=== PATIENT | male | born 1950 | race Caucasian/White ===

== ENCOUNTER → 2016-09-05 | Day surgery (SDC) | payer BC ==
[2016-08-31 15:00] VITALS: BMI 36.0
--- NOTE | 2016-08-31 15:29 | PAT Medication Instructions ---
Service Date Aug 31, 2016. Current Home Medication List Hydrocodone/Acetaminophen 5MG/325MG ([place] 5MG/325MG), 1 TABLET PO Q6 PRN for Pain Medication Instructions For Your Scheduled Surgery - Take the following medications the morning of surgery with a sip of water: Hydrocodone/Acetaminophen 5MG/325MG ([place] 5MG/325MG), 1 TABLET PO Q6 PRN for Pain (okay to take up to 4 hours prior to surgery if needed) - Take the following medications as scheduled the night before surgery: Hydrocodone/Acetaminophen 5MG/325MG ([place] 5MG/325MG), 1 TABLET PO Q6 PRN for Pain (if needed) If you have any questions please call us at [phone] (Julienne Mckeon PA-C) or [phone] or [phone]
[~2016-09-05] VITALS: Ht 172.7 cm; Wt 108.3 kg
[~2016-09-05] MED LIST: ATROPINE SULFATE 0.1 MG/ML 5ML SYR IV PRN; BUPIVACAINE/EPINEPHRINE 0.5% MPF 1:200,000 30 ML VIAL INJ ONE; CEFAZOLIN 2000 MG/60 ML D5W IV SCH; DEXAMETHASONE SOD INJ 4 MG/ML VIAL ONE; EpHEDrine SULFATE INJ 50 MG/ML AMP IV PRN; FENTANYL CITRATE INJ 50 MCG/1 ML 2 ML VIAL ONE; FLUMAZENIL 0.1 MG/1 ML 10 ML VIAL IV PRN; GLYCOPYRROLATE INJ 0.2 MG/ML VIAL ONE; HEPARIN SOD 5000 UNIT/0.5 ML CARP SQ SCH; HYDR-5688 PO; HYDROCODONE/ACETAMOPHEN 5/325MG TAB PO PRN; HYDROmorphone INJ 1 MG/ML SYR IV PRN; LABETALOL HCL IV 5 MG/ML 20ML IV PRN; LACTATED RINGER'S 1000ML 1,000 ML IV SCH; LIDOCAINE HCL 2% 2 ML VIAL (20MG/ML) ONE; MIDAZOLAM HCL 1 MG/ML 2ML VIAL ONE; MoRPHine SULFATE 4 MG/ML 1 ML CARP\\VIAL IV PRN; NALOXONE HCL 0.4 MG/1 ML VIAL/CARP IV PRN; NEOSTIGMINE METHYLSULFATE 5 MG/5 ML SYR ONE; ONDANSETRON INJ 2 MG/ML 2 ML VIAL IV PRN; ONDANSETRON INJ 2 MG/ML 2 ML VIAL ONE; PHENYLEPHRINE 100MCG/ML 5ML SYR ONE; PROMETHAZINE HCL INJ 12.5 MG in SODIUM CHLORIDE 0.9% 50ML 50 ML IV PRN; PROPOFOL IV EMULSION 10 MG/ML 20 ML VIAL IV ONE; ROCURONIUM BROMIDE 10 MG/ML 5 ML VIAL ONE
[2016-09-05 08:45] VITALS: BP 164/97; PULSE 81; TEMP 36.7; O2SAT 95; Ht 172.7 cm; Wt 108.3 kg
--- NOTE | 2016-09-05 08:50 | History & Physical Bridge Note ---
H&P Re-Evaluation Bridge Note: I have examined the patient, reviewed the History & Physical and in the interval since the performance of the History & Physical I have noted the following changes of clinical significance: No changes noted
--- NOTE | 2016-09-05 08:53 | Discharge Instructions ---
Discharge Instructions Admission Reason for Admission: Left Inguinal Hernia Discharge Discharge Diagnosis / Problem: left inguinal hernia Discharge Goals Goal(s): Decrease discomfort, Improve function Activity Recommendations Activity Limitations: as noted below Lifting Limitations: no more than 10 pounds Exercise/Sports Limitations: until after follow-up appointment May Resume Sexual Activity: after follow-up appointment Shower/Bathe: tomorrow . Instructions / Follow-Up Instructions / Follow-Up f/u with Dr. Lynch in 1-2 weeks Current Hospital Diet Patient's current hospital diet: Discharge Diet Recommended Diet: Regular Diet Pending Studies Studies pending at discharge: no Medical Emergencies . Who to Call and When: Medical Emergencies: If at any time you feel your situation is an emergency, please call 911 immediately. . Non-Emergent Contact Non-Emergency issues call your: Primary Care Provider, Surgeon Call Non-Emergent contact if: temperature is above 101, your pain is not controlled, wound has increased drainage, wound has increased redness . "Provider Documentation" section prepared by Darrin Lynch. VTE Core Measure Inpt VTE Proph given/why not?: Unfractionated heparin SQ, SCD's
--- NOTE | 2016-09-05 10:39 | [facility] Operative Report ---
Operative Report Operative Date Sep 05, 2016. Pre-Operative Diagnosis Left inguinal hernia Post-Operative Diagnosis large direct inguinal hernia Procedure(s) Performed open inguinal hernia repair with mesh Surgeon Dr. Lynch Tunnel Miner Surgeon(s) Ryan Starkey PA-C Findings large direct inguinal hernia Specimens none Anesthesia get Complication(s) None Disposition Recovery Room / PACU I attest to the content of the Intraoperative Record and any orders documented therein. Any exceptions are noted below.
--- NOTE | 2016-09-05 11:13 | OPERATIVE REPORT ---
DATE OF OPERATION: 09/05/2016 PREOPERATIVE DIAGNOSIS: Left inguinal hernia. POSTOPERATIVE DIAGNOSIS: Large direct inguinal hernia. PROCEDURE: Open left inguinal hernia repair with mesh. SURGEON: Dr. Lynch. WEB DESIGNER DEVELOPER: Ryan Starkey PA-C. ESTIMATED BLOOD LOSS: 10 mL COMPLICATION: No immediate. ANESTHESIA: General endotracheal. OPERATIVE NOTE: After informed consent was obtained, the patient was taken to the operating suite and placed in supine position. After successful intubation, a Soliman catheter was placed, and the lower abdomen was shaved, sterilely prepped and draped. A left inguinal incision was made with a 15 blade scalpel. It was carried down through the soft tissue using electrocautery. The external oblique aponeurosis was skeletonized and a small incision made with a new blade. Metzenbaum scissors were then used to extend this down through the external ring as well as for several centimeters proximally. Once in the inguinal canal, we grasped the cord and cord structures with a Brainard and elevated. Blunt finger dissection was used to separate it from surrounding structures. We found a very large direct inguinal hernia with basically the whole floor of the inguinal canal ruptured. We did inspect the cord, there was no evidence of an indirect hernia sac. Because of the large nature of the hernia, we did imbricate it prior to placing mesh. We used 0 Nurolon sutures to pull the midline muscles over and attach them to the shelving portion of the inguinal ligament. We did this with multiple simple interrupted sutures. Once this was performed, we then used a barnes-holed mesh as an onlay. We secured it distally to the Jose Antonio's ligament, medially along the rectus musculature and laterally along the inguinal ligament. We wrapped the "arms" of the mesh around behind the cord and cord structures and secured them together as well as the underlying muscle. At the end of the procedure, we had a nice mesh repair incorporating the entire canal. We did thoroughly irrigate the wound. There was adequate hemostasis at the end of the procedure. We injected the edges of the mesh with Marcaine. We then closed the external oblique aponeurosis with 2-0 Vicryl in a running fashion. We irrigated soft tissue and closed it using 3-0 Vicryl and 4-0 Monocryl. Some additional Marcaine was injected around the skin and Dermabond glue was placed. The patient was awakened, extubated and transferred to recovery in stable condition. I attest to the content of the Intraoperative Record and any orders documented therein. Any exceptio ns are noted below.
--- NOTE | 2016-09-05 11:15 | Anesthesiology Progress Note ---
Anesthesia Post Op Note Date & Time Sep 05, 2016 at 11:14 Vital Signs Pain Intensity: 1 Vital Signs Past 12 Hours Date Time Temp Pulse Resp B/P Pulse Ox O2 Delivery O2 Flow Rate FiO2 09/05/16 11:10 61 22 100 09/05/16 11:10 36.5 61 22 09/05/16 11:09 147/87 09/05/16 11:05 64 18 09/05/16 11:05 64 18 100 09/05/16 11:04 142/83 09/05/16 11:00 61 16 09/05/16 11:00 61 16 100 09/05/16 10:58 140/81 09/05/16 10:55 61 18 100 09/05/16 10:55 61 18 09/05/16 10:53 130/81 09/05/16 10:50 62 19 09/05/16 10:50 63 19 100 09/05/16 10:49 140/81 09/05/16 10:45 59 16 100 09/05/16 10:45 59 16 09/05/16 10:43 156/94 09/05/16 10:41 132/80 09/05/16 10:40 36.4 64 16 132/80 95 Mask 10 09/05/16 08:45 36.7 81 18 164/97 95 Room Air Notes Mental Status: alert / awake / arousable, participated in evaluation Pt Amnestic to Procedure: Yes Nausea / Vomiting: adequately controlled Pain: adequately controlled Airway Patency, RR, SpO2: stable & adequate BP & HR: stable & adequate Hydration State: stable & adequate Anesthetic Complications: no major complications apparent
[2016-09-05 11:30] VITALS: BP 166/88; PULSE 65; TEMP 36.4; O2SAT 95
[2016-09-05 11:55] VITALS: BP 154/92; PULSE 65; TEMP 36.9; O2SAT 94
[2016-09-05 12:30] VITALS: BP 155/96; PULSE 76; TEMP 36.7; O2SAT 96
== END | disposition home or self-care (01) ==
LOC: C.ACU 08:12
PROVIDERS: ATTEND Surgery
DX: K40.90 Unilateral inguinal hernia, without obstruction or gangrene, not specified as recurrent (principal); I10 Essential (primary) hypertension; E66.9 Obesity, unspecified; E78.5 Hyperlipidemia, unspecified; Z98.41 Cataract extraction status, right eye; Z98.42 Cataract extraction status, left eye; Z87.891 Personal history of nicotine dependence; Z68.36 Body mass index [BMI] 36.0-36.9, adult; Z87.442 Personal history of urinary calculi

== ENCOUNTER → 2016-09-27 | Outpatient (CLI) | payer BC ==
[~2016-09-27] MED LIST changes: -ATROPINE SULFATE 0.1 MG/ML 5ML SYR IV PRN; -BUPIVACAINE/EPINEPHRINE 0.5% MPF 1:200,000 30 ML VIAL INJ ONE; -CEFAZOLIN 2000 MG/60 ML D5W IV SCH; -DEXAMETHASONE SOD INJ 4 MG/ML VIAL ONE; -EpHEDrine SULFATE INJ 50 MG/ML AMP IV PRN; -FENTANYL CITRATE INJ 50 MCG/1 ML 2 ML VIAL ONE; -FLUMAZENIL 0.1 MG/1 ML 10 ML VIAL IV PRN; -GLYCOPYRROLATE INJ 0.2 MG/ML VIAL ONE; -HEPARIN SOD 5000 UNIT/0.5 ML CARP SQ SCH; -HYDROCODONE/ACETAMOPHEN 5/325MG TAB PO PRN; -HYDROmorphone INJ 1 MG/ML SYR IV PRN; -LABETALOL HCL IV 5 MG/ML 20ML IV PRN; -LACTATED RINGER'S 1000ML 1,000 ML IV SCH; -LIDOCAINE HCL 2% 2 ML VIAL (20MG/ML) ONE; -MIDAZOLAM HCL 1 MG/ML 2ML VIAL ONE; -MoRPHine SULFATE 4 MG/ML 1 ML CARP\\VIAL IV PRN; -NALOXONE HCL 0.4 MG/1 ML VIAL/CARP IV PRN; -NEOSTIGMINE METHYLSULFATE 5 MG/5 ML SYR ONE; -ONDANSETRON INJ 2 MG/ML 2 ML VIAL IV PRN; -ONDANSETRON INJ 2 MG/ML 2 ML VIAL ONE; -PHENYLEPHRINE 100MCG/ML 5ML SYR ONE; -PROMETHAZINE HCL INJ 12.5 MG in SODIUM CHLORIDE 0.9% 50ML 50 ML IV PRN; -PROPOFOL IV EMULSION 10 MG/ML 20 ML VIAL IV ONE; -ROCURONIUM BROMIDE 10 MG/ML 5 ML VIAL ONE
== END | disposition home or self-care (01) ==
LOC: C.LABSPEC 17:24
PROVIDERS: ATTEND Surgery
DX: H60.91 Unspecified otitis externa, right ear (principal)

== ENCOUNTER 2017-12-21 19:56 | Emergency (ER) | payer BC ==
[~2017-12-21] VITALS: Ht 170.2 cm; Wt 108.0 kg
[2017-12-21 19:59] VITALS: TEMP 36.8; O2SAT 95; Ht 170.2 cm; Wt 108.0 kg
--- NOTE | 2017-12-21 20:09 | EMERGENCY ROOM VISIT NOTE ---
History Report prepared by Ananda: Robbie Brunner Under the Supervision of: Dr. Amos George M.D. First contact with patient: 20:02 Chief Complaint: FLANK PAIN Stated Complaint: PAIN IN L TESTICLE,SIDE AND BACK History of Present Illness The patient is a 67 year old male who presents to the Emergency Room with complaints of worsening left lower back pain beginning 6-7 months ago. The patient states his symptoms radiate from his left lower back through his left abdomen to his left testicle. He reports his symptoms have worsened over the past few days. The patient notes his symptoms intensify when he bends over. He states he took two Aleve this morning. The patient reports he had an MRI preformed in 2014 and was told it was normal. He notes he received the MRI for a possible disk complication. The patient denies being evaluated for his current symptoms and urinary symptoms. Review of the EMR showed the patient had a CT in 2015 that showed several, small kidney stones. Source of History: patient Onset: 6-7 months ago Position: back (left, lower) Timing: worsening Modifying Factors (Worsening): movement (bending over) Associated Symptoms: + abdominal pain (left), No urinary symptoms Note: Associated symptoms: left testicular pain Review of Systems See HPI for pertinent positives & negatives. A total of 10 systems reviewed and were otherwise negative. Past Medical & Surgical Medical Problems: (1) Kidney stone Family History Heart disease Hypertension Kidney disease Social History Smoking Status: Former Smoker Alcohol Use: occasionally Marital Status: Housing Status: lives with family Occupation Status: unemployed Current/Historical Medications Scheduled Lidocaine (Lidocaine), 5 % TD DAILY Scheduled PRN Naproxen (Aleve), 440 MG PO DAILY PRN for Pain or Fever Oxycodone Immediate Rel Tab (Roxicodone Ir), 1-2 TAB PO Q4H PRN for Severe Pain Allergies Coded Allergies: No Known Allergies (Unverified , 12/21/17) Physical Exam Vital Signs Date Time Temp Pulse Resp B/P (MAP) Pulse Ox O2 Delivery O2 Flow Rate FiO2 12/21/17 22:19 150/101 12/21/17 21:17 67 12/21/17 19:59 36.8 75 18 151/92 95 Room Air Physical Exam GENERAL: Awake, alert, well-appearing, in no acute distress HENT: Normocephalic, atraumatic. Oropharynx unremarkable. EYES: Normal conjunctiva. Sclera non-icteric. NECK: Supple. No nuchal rigidity. FROM. No JVD. RESPIRATORY: Clear to auscultation. CARDIAC: Regular rate, normal rhythm. Extremities warm and well perfused. Pulses equal. ABDOMEN: Soft, non-distended. No tenderness to palpation. No rebound or guarding. No masses. RECTAL: Deferred. : No evidence of testicular torsion on exam. Good cremasteric reflex. Testicles themselves are not swollen. MUSCULOSKELETAL: Chest examination reveals no tenderness. The back is symmetrical on inspection without obvious abnormality. There is no CVA tenderness to palpation. No joint edema. LOWER EXTREMITIES: Calves are equal size bilaterally and non-tender. No edema. No discoloration. NEURO: Normal sensorium. No sensory or motor deficits noted. Pt is able to walk on tiptoes and heels. SKIN: No rash or jaundice noted. Medical Decision & Procedures ER Provider Diagnostic Interpretation: Radiology results as stated below per my review and radiologist interpretation: LUMBAR SPINE WITHOUT CT DOSE: HISTORY: Pain Pt c/o pain radiating to testicle TECHNIQUE: Multiaxial CT images of the lumbar spine were performed and reformatted in the sagittal and coronal plane without the use of contrast. A dose lowering technique was utilized adhering to the principles of ALARA. COMPARISON: None. FINDINGS: Mild degenerative disc changes throughout. Considerable degenerative anterior osteophyte formation from L2 through L4. No evidence for compression deformity. Mild degenerative changes of the posterior elements. No evidence for significant bony spinal stenosis. IMPRESSION: Moderate degenerative disc change. No acute abnormality. The above report was generated using voice recognition software. It may contain grammatical, syntax or spelling errors. Electronically signed by: Yordan Jimenez M.D. 12/21/2017 9:16 PM Dictated Date/Time: 12/21/2017 9:15 PM ABD/PELVIS WITHOUT FOR STONE CT DOSE: 1943.55 mGy.cm HISTORY: Flank pain Pt c/o left sided flank pain TECHNIQUE: Multiaxial CT images of the abdomen and pelvis were performed without the use of intravenous and oral contrast according to the standard department stone protocol. A dose lowering technique was utilized adhering to the principles of ALARA. COMPARISON STUDY: 10/02/2014 FINDINGS: Minimal bibasilar atelectasis. Liver spleen and pancreas are uniform. The gallbladder shows the kidneys show mild cortical scarring. There are negative for hydronephrosis. Nonobstructive bowel pattern. Moderate fecal material throughout the colon. Normal appendix. Mild fecal impaction of the rectum. Mild prosthetic enlargement. Bladder is midline. Moderate degenerative changes lumbar spine. IMPRESSION: 1. Mild rectal fecal impaction. 2. Abdomen and pelvis is otherwise negative. 3. Minimal bibasilar platelike atelectasis. The above report was generated using voice recognition software. It may contain grammatical, syntax or spelling errors. Electronically signed by: Yordan Jimenez M.D. 12/21/2017 9:15 PM Dictated Date/Time: 12/21/2017 9:10 PM Laboratory Results 12/21/17 20:23 Red Blood Count 4.68, Mean Corpuscular Volume 90.8, Mean Corpuscular Hemoglobin 31.4, Mean Corpuscular Hemoglobin Concent 34.6, Mean Platelet Volume 9.0, Neutrophils (%) (Auto) 65.2, Lymphocytes (%) (Auto) 23.5, Monocytes (%) (Auto) 7.0, Eosinophils (%) (Auto) 3.8, Basophils (%) (Auto) 0.3, Neutrophils # (Auto) 4.30, Lymphocytes # (Auto) 1.55, Monocytes # (Auto) 0.46, Eosinophils # (Auto) 0.25, Basophils # (Auto) 0.02 12/21/17 20:23 Test 12/21/17 20:23 White Blood Count 6.59 K/uL (4.8-10.8) Red Blood Count 4.68 M/uL (4.7-6.1) Hemoglobin 14.7 g/dL (14.0-18.0) Hematocrit 42.5 % (42-52) Mean Corpuscular Volume 90.8 fL (80-100) Mean Corpuscular Hemoglobin 31.4 pg (25-34) Mean Corpuscular Hemoglobin Concent 34.6 g/dl (32-36) Platelet Count 185 K/uL (130-400) Mean Platelet Volume 9.0 fL (7.4-10.4) Neutrophils (%) (Auto) 65.2 % Lymphocytes (%) (Auto) 23.5 % Monocytes (%) (Auto) 7.0 % Eosinophils (%) (Auto) 3.8 % Basophils (%) (Auto) 0.3 % Neutrophils # (Auto) 4.30 K/uL (1.4-6.5) Lymphocytes # (Auto) 1.55 K/uL (1.2-3.4) Monocytes # (Auto) 0.46 K/uL (0.11-0.59) Eosinophils # (Auto) 0.25 K/uL (0-0.5) Basophils # (Auto) 0.02 K/uL (0-0.2) RDW Standard Deviation 43.5 fL (36.4-46.3) RDW Coefficient of Variation 13.3 % (11.5-14.5) Immature Granulocyte % (Auto) 0.2 % Immature Granulocyte # (Auto) 0.01 K/uL (0.00-0.02) Erythrocyte Sedimentation Rate 8 mm/hr (0-14) Anion Gap 6.0 mmol/L (3-11) Est Creatinine Clear Calc Drug Dose 65.4 ml/min Estimated GFR () 67.7 Estimated GFR (Non- 58.4 BUN/Creatinine Ratio 19.4 (10-20) Calcium Level 9.1 mg/dl (8.5-10.1) Total Bilirubin 0.8 mg/dl (0.2-1) Direct Bilirubin 0.3 mg/dl (0-0.2) Aspartate Amino Transf (AST/SGOT) 23 U/L (15-37) Alanine Aminotransferase (ALT/SGPT) 22 U/L (12-78) Alkaline Phosphatase 78 U/L (45-117) C-Reactive Protein 0.37 mg/dl (0-0.29) Total Protein 7.6 gm/dl (6.4-8.2) Albumin 4.3 gm/dl (3.4-5.0) Lipase 207 U/L (73-393) Labs reviewed by ED physician. Medications Administered Medications (Trade) Dose Ordered Sig/Kathy Route Start Time Stop Time Status Last Admin Dose Admin Ketorolac Tromethamine (Toradol Inj) 30 mg NOW STAT IV 12/21/17 20:10 12/21/17 20:14 DC 12/21/17 20:34 30 MG Hydromorphone HCl (Dilaudid Inj) 0.5 mg NOW STAT IV 12/21/17 20:10 4/26/18 20:14 DC 12/21/17 20:33 0.5 MG Sodium Chloride 1,000 ml @ 999 mls/hr Q1H1M STAT IV 12/21/17 20:10 12/21/17 21:10 DC 12/21/17 20:33 999 MLS/HR Ondansetron HCl (Zofran Inj) 4 mg NOW STAT IV 12/21/17 20:10 12/21/17 20:14 DC 12/21/17 20:34 4 MG Lidocaine (Lidoderm Patch 5%) 1 patch NOW STAT TD 12/21/17 21:36 12/21/17 21:38 DC 12/21/17 22:09 1 PATCH Oxycodone HCl (Roxicodone Immediate Rel 5MG Home Pack) 1 homepack UD ONCE PO 12/21/17 21:45 12/21/17 21:46 DC 12/21/17 22:09 1 HOMEPACK ED Course 2002: Past medical records reviewed. The patient was evaluated in room C02B. A complete history and physical examination was performed. 2009: Ordered Ondansetron 4mg IV, Sodium Chloride 1000 ml @ 999 mls/hr IV, Dilaudid 0.5mg IV, Ketorolac Tromethamine 30mg IV 2130: Upon reexamination the patient is still experiencing mild back pain. I performed a testicular examination. I discussed results and treatment plan with the patient. He verbalizes agreement and understanding. The patient is ready for discharge when he receives his medication. 2135: Ordered Lidocaine 1 patch TD 2144: Ordered Oxycodone HCl 1 homepack PO Medical Decision Etiologies such as appendicitis, diverticulitis, PUD, biliary pathology, UTI, pancreatitis, obstruction, mesenteric ischemia, aortic pathology, infections, inflammatory bowel disease, renal colic, as well as others were entertained. This is a 67-year-old male who presents the emergency department complaining of left flank pain that has been ongoing first months. The patient reports he has had multiple workups including an MRI as well as CAT scan of the spine and abdomen. I suspect based on testicular examination as well as abdominal examination and back examination the patient is feeling referred pain from his spine. I offered the patient an MRI however he refused. Using shared medical decision making with both the patient and his I offered conservative treatment such as pain medication or to do imaging and laboratory work. They did agree to having a CAT scan of the abdomen pelvis as well as the lumbar spine performed. I will note he has a normal CBC normal renal profile normal liver profile normal lipase. The patient was given pain medication in the emergency department including Dilaudid and Toradol. Repeat examination revealed improvement in the patient's symptoms. I stressed the need for follow- up with orthopedic spine. Patient was in agreement with the treatment plan. Medication Reconcilliation Current Medication List: was personally reviewed by me Blood Pressure Screening Patient's blood pressure: Elevated blood pressure Blood pressure disposition: Referred to PCP Impression Primary Impression: Left flank pain Scribe Attestation The scribe's documentation has been prepared under my direction and personally reviewed by me in its entirety. I confirm that the note above accurately reflects all work, treatment, procedures, and medical decision making performed by me. Departure Information Dispostion Home / Self-Care Prescriptions Oxycodone Immediate Rel Tab (ROXICODONE IR) 5 Mg Tab 1-2 TAB PO Q4H Y for Severe Pain, #14 TAB Prov: Amos George MD 12/21/17 Lidocaine (Lidocaine) 1 Patch Tdsy 5 % TD DAILY for 30 Days, #30 PATCH Prov: Amos George MD 12/21/17 Referrals Megan Montoya M.D. (PCP) Forms HOME CARE DOCUMENTATION FORM, IMPORTANT VISIT INFORMATION, School Instructions, Work Instructions Patient Instructions Back Pain - [facility], Back Pain Relieve, Low Back Pain Self Care, My [facility] Additional Instructions Follow up with Dr Corey You received narcotic or benzodiazepene medication while in the emergency room today. This is an addictive medication that may cause drowziness as well as constipation. Do not drive, operate heavy machinery, or drink alcohol under the influence of this medication. Take 1000 mg Tylenol every 6 hours Take Oxy IR for breakthrough pain You have been examined and treated today on an emergency basis only. This is not a substitute for, or an effort to provide, complete comprehensive medical care. It is impossible to recognize and treat all injuries or illnesses in a single emergency department visit. It is therefore important that you follow up closely with [facility]. Call as soon as possible for an appointment. Thank you for your time and consideration. I look forward to speaking with you again soon. Please don't hesitate to call us if you have any questions.
[2017-12-21] MEDS ORDERED: HYDROmorphone INJ 1 MG/ML SYR IV STA (20:10)
[2017-12-21] MEDS ORDERED: SODIUM CHLORIDE 0.9% 1000ML 1,000 ML IV STA (20:10)
[2017-12-21] MEDS ORDERED: KETOROLAC TROMETHAMINE 30 MG/ML VIAL IV STA (20:10)
[2017-12-21] MEDS ORDERED: ONDANSETRON INJ 2 MG/ML 2 ML VIAL IV STA (20:10)
[2017-12-21] MEDS ORDERED: NAPR1TAB9 PO (20:23)
[2017-12-21 20:32] LABS: BASO % 0.3 %; BASO ABS # 0.02 K/uL (0-0.2); EOS % 3.8 %; EOS ABS # 0.25 K/uL (0-0.5); HEMATOCRIT 42.5 % (42-52); HEMOGLOBIN 14.7 g/dL (14.0-18.0); IG# 0.01 K/uL (0.00-0.02); LYMPH % 23.5 %; LYMPH ABS # 1.55 K/uL (1.2-3.4); MEAN CELL VOLUME 90.8 fL (80-100); MEAN CORPUSCULAR HEMOGLOBIN 31.4 pg (25-34); MEAN CORPUSCULAR HGB CONC 34.6 g/dl (32-36); MONO ABS # 0.46 K/uL (0.11-0.59); NEUT % 65.2 %; PLATELET COUNT 185 K/uL (130-400); RED CELL DISTRIBUTION WIDTH CV 13.3 % (11.5-14.5); RED CELL DISTRIBUTION WIDTH SD 43.5 fL (36.4-46.3); WHITE BLOOD COUNT 6.59 K/uL (4.8-10.8)
[2017-12-21 20:52] LABS: ALBUMIN 4.3 gm/dl (3.4-5.0); CALCIUM 9.1 mg/dl (8.5-10.1); CREATININE 1.25 mg/dl (0.60-1.40); POTASSIUM 4.2 mmol/L (3.5-5.1)
[2017-12-21 20:55] LABS: TOTAL PROTEIN 7.6 gm/dl (6.4-8.2)
--- NOTE | 2017-12-21 21:16 | DIAGNOSTIC IMAGING REPORT ---
ABD/PELVIS WITHOUT FOR STONE CT DOSE: 1943.55 mGy.cm HISTORY: Flank pain Pt c/o left sided flank pain TECHNIQUE: Multiaxial CT images of the abdomen and pelvis were performed without the use of intravenous and oral contrast according to the standard department stone protocol. A dose lowering technique was utilized adhering to the principles of ALARA. COMPARISON STUDY: 10/02/2014 FINDINGS: Minimal bibasilar atelectasis. Liver spleen and pancreas are uniform. The gallbladder shows the kidneys show mild cortical scarring. There are negative for hydronephrosis. Nonobstructive bowel pattern. Moderate fecal material throughout the colon. Normal appendix. Mild fecal impaction of the rectum. Mild prosthetic enlargement. Bladder is midline. Moderate degenerative changes lumbar spine. IMPRESSION: 1. Mild rectal fecal impaction. 2. Abdomen and pelvis is otherwise negative. 3. Minimal bibasilar platelike atelectasis. The above report was generated using voice recognition software. It may contain grammatical, syntax or spelling errors. Electronically signed by: Yordan Jimenez M.D. 12/21/2017 9:15 PM Dictated Date/Time: 12/21/2017 9:10 PM
[2017-12-21 21:17] VITALS: PULSE 67
--- NOTE | 2017-12-21 21:18 | DIAGNOSTIC IMAGING REPORT ---
LUMBAR SPINE WITHOUT CT DOSE: HISTORY: Pain Pt c/o pain radiating to testicle TECHNIQUE: Multiaxial CT images of the lumbar spine were performed and reformatted in the sagittal and coronal plane without the use of contrast. A dose lowering technique was utilized adhering to the principles of ALARA. COMPARISON: None. FINDINGS: Mild degenerative disc changes throughout. Considerable degenerative anterior osteophyte formation from L2 through L4. No evidence for compression deformity. Mild degenerative changes of the posterior elements. No evidence for significant bony spinal stenosis. IMPRESSION: Moderate degenerative disc change. No acute abnormality. The above report was generated using voice recognition software. It may contain grammatical, syntax or spelling errors. Electronically signed by: Yordan Jimenez M.D. 12/21/2017 9:16 PM Dictated Date/Time: 12/21/2017 9:15 PM
[2017-12-21] MEDS ORDERED: LIDODERM (LIDOCAINE) PATCH 5% TD STA (21:36)
[2017-12-21] MEDS ORDERED: OXYC1TAB3 PO (21:39)
[2017-12-21] MEDS ORDERED: LDDP5 TD (21:39)
[2017-12-21] MEDS ORDERED: OXYCODONE IR HOME PACK PO ONE (21:45)
[2017-12-21 22:19] VITALS: BP 150/101
== END 2017-12-21 22:20 | disposition home or self-care (01) ==
LOC: C.EDB 19:57 → C.EDC 22:20
DX: R10.32 Left lower quadrant pain (principal); Z87.442 Personal history of urinary calculi; Z82.49 Family history of ischemic heart disease and other diseases of the circulatory system; Z84.1 Family history of disorders of kidney and ureter; Z87.891 Personal history of nicotine dependence

== ENCOUNTER 2018-01-16 18:40 | Emergency (ER) | payer BC ==
[~2018-01-16] VITALS: Ht 170.2 cm; Wt 104.0 kg
[~2018-01-16 18:40] MED LIST changes: -HYDR-5688 PO; +LDDP5 TD; +NAPR1TAB9 PO; +OXYC1TAB3 PO
[2018-01-16 18:44] VITALS: TEMP 36.7; Ht 170.2 cm; Wt 104.0 kg
[2018-01-16] MEDS ORDERED: KETOROLAC TROMETHAMINE 60 MG/2 ML VIAL IM STA (19:40)
[2018-01-16] MEDS ORDERED: DEXAMETHASONE SOD INJ 4 MG/ML 5 ML VIAL IM STA (19:40)
[2018-01-16] MEDS ORDERED: MoRPHine SULFATE 10 MG/ML CARP/VIAL IM STA (19:40)
[2018-01-16] MEDS ORDERED: DEXAMETHASONE **PF** INJ 10 MG/ML VIAL ONE ×2 (19:56→19:59)
[2018-01-16] MEDS ORDERED: PRED20TA PO (20:01)
[2018-01-16] MEDS ORDERED: CYCL10TA6 PO (20:01)
[2018-01-16] MEDS ORDERED: OXYC-106 PO (20:01)
--- NOTE | 2018-01-16 20:03 | EMERGENCY ROOM VISIT NOTE ---
History Report prepared by Ananda: Dora Allen Under the Supervision of: Dr. Amos Ferris D.O. 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 He reports he saw Dr. Corey 2 to 3 weeks ago where he was prescribed Diclofenac but he feels it has not helped. He is accompanied by his who notes that Dr. Corey told the patient to come back to the ED in 5 weeks. The patient reports the pain begins in his testicles and radiates to his lower back. Movement, picking something up, and getting out of a vehicle all worsen his pain. He denies any urinary symptoms, abdominal pain, or leg swelling. He states he has been going to physical therapy lately for his back. 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 Review of Systems See HPI for pertinent positives & negatives. A total of 10 systems reviewed and were otherwise negative. Past Medical & Surgical Medical Problems: (1) Kidney stone Family History Heart disease Hypertension Kidney disease Social History Smoking Status: Never Smoker Alcohol Use: occasionally Marital Status: Housing Status: lives with family Occupation Status: unemployed Current/Historical Medications Scheduled Ascorbic Acid (Vitamin C), 500 MG DAILY Cyclobenzaprine Hcl (Flexeril), 1 TAB PO TID Diclofenac (Voltaren), 75 MG PO BID Prednisone (Prednisone), 0 PO DAILY Scheduled PRN Lidocaine (Lidocaine), 1 PATCH TOP DAILY PRN for Pain Allergies Coded Allergies: No Known Allergies (Unverified , 12/21/17) Physical Exam Vital Signs Date Time Temp Pulse Resp B/P (MAP) Pulse Ox O2 Delivery O2 Flow Rate FiO2 01/16/18 18:44 36.7 84 18 142/101 97 Room Air Physical Exam CONSTITUTIONAL/VITAL SIGNS: Reviewed / noted above. GENERAL: Non-toxic in appearance. INTEGUMENTARY: Warm, dry, and [place]. HEAD: Normocephalic. EYES: without scleral icterus or trauma. ENT/OROPHARYNX: clear and moist. LYMPHADENOPATHY/NECK: Is supple without lymphadenopathy or meningismus. RESPIRATORY: Lungs clear and equal. CARDIOVASCULAR: Regular rate and rhythm. GI/ABDOMEN: Soft and nontender. No organomegaly or pulsatile mass. No rebound or guarding. Normal bowel sounds. EXTREMITIES: Warm and well perfused. BACK: Tenderness to palpation of the right paraspinal musculature and flank musculature. Increased pain in the back with attempting to sit up or move his legs. NEUROLOGICAL: Intact without focal deficits. PSYCHIATRIC: normal affect. MUSCULOSKELETAL: Normally developed with good muscle tone. Medical Decision & Procedures ED Course 1903: Previous medical records were reviewed. The patient was evaluated in room C2. A complete history and physical examination was performed. 1939: Ordered Toradol Inj 60 mg IM, Morphine Sulfate 8 mg IM 2006: I PDMP'ed the patient at this time. No issues were identified. 2014: On reevaluation, the patient is feeling slightly better. I discussed the results and findings with the patient. He verbalized agreement of the treatment plan. He was discharged home. Medical Decision Differential considered includes cauda equina syndrome, conus medullaris, spinal cord compression syndrome, peripheral nerve compression, fractures or subluxations, intra-abdominal pathology such as abdominal aortic aneurysm or kidney stones, muscle strain, transverse myelitis, spinal cord injury. This is a 67-year-old male who presents to the ED with a chief complaint of back pain. The patient's pain is worse with movement. He had a CT scan of the lumbar region as well as the abdomen and pelvis on December 21. There was degenerative changes on the lumbar CT scan. On the abdominal scan, there was some mild constipation. Sed rate was normal and CRP was mildly elevated, blood work was otherwise unremarkable. The patient followed up with Dr. Corey and was placed on diclofenac. He is also doing physical therapy. The patient had physical therapy yesterday and his symptoms seem to be worse today. He was having difficulty moving today. His states that their son is getting this weekend and she would like him to be better by Monday. The patient's exam reveals increased discomfort in the back with movement. There is no tenderness of the spine but he does have a significant amount of tenderness to the musculature of the right flank and paraspinal muscle area. Abdomen is soft and nontender. He has no radiation of his symptoms down his leg. He denies any urinary or bowel issues. The patient has normal motor and sensory function lower extremities but has increased discomfort in the back with lifting either leg. After discussing the results of his previous tests and his current exam, I feel the patient's symptoms are muscular in nature. I did not feel any additional studies were required to elude to a different diagnosis other than musculoskeletal back pain. The patient was treated with morphine and Toradol IM as well as Decadron IM. The patient will be discharged on Percocet, Flexeril and prednisone. He was felt to be stable for discharge. [place] Drug Monitoring Program Search Results: patient reviewed within database, no issues identified Medication Reconcilliation Current Medication List: was personally reviewed by me Blood Pressure Screening Patient's blood pressure: Elevated blood pressure Blood pressure disposition: Elevated BP felt to be situational Impression Primary Impression: Intractable low back pain Scribe Attestation The scribe's documentation has been prepared under my direction and personally reviewed by me in its entirety. I confirm that the note above accurately reflects all work, treatment, procedures, and medical decision making performed by me. Departure Information Dispostion Home / Self-Care Prescriptions Prednisone (Prednisone) 20 Mg Tab 0 PO DAILY, #18 TAB 3 DAILY FOR 3 DAYS, THEN 2 DAILY FOR 3 DAYS, THEN 1 DAILY FOR 3 DAYS. Prov: Amos Ferris D.O. 01/16/18 Cyclobenzaprine Hcl (FLEXERIL) 10 Mg Tab 1 TAB PO TID for 30 Days, #90 TAB Prov: Amos Ferris D.O. 01/16/18 Referrals Megan Montoya M.D. (PCP) Patient Instructions Back Pain - [facility], Back Pain Relieve, My [facility] Additional Instructions Percocet as prescribed for severe pain. Take 1 every 6 hours for pain. No driving within 6 hours of use. Do not take additional Tylenol while taking Percocet. Flexeril as prescribed for muscle spasm. Percocet as prescribed. Continue diclofenac. Continue physical therapy. Follow-up with your doctor for further care and evaluation in 3-7 days. Return to the emergency department for worsening or new symptoms or any concerns. You have been examined and treated today on an emergency basis only. This is not a substitute for, or an effort to provide, complete comprehensive medical care. It is impossible to recognize and treat all injuries or illnesses in a single emergency department visit. It is therefore important that you follow up closely with your doctor. Call as soon as possible for an appointment.
[2018-01-16] MEDS ORDERED: LIDO1PAD2 TOP (20:07)
[2018-01-16] MEDS ORDERED: ASCO-63 (20:07)
[2018-01-16] MEDS ORDERED: DICL-201 PO (20:07)
[2018-01-16 20:10] VITALS: BP 174/109; PULSE 67; O2SAT 95
== END 2018-01-16 20:36 | disposition home or self-care (01) ==
LOC: C.EDB 18:41 → C.EDC 20:36
DX: M54.5 Low back pain (principal); Z87.442 Personal history of urinary calculi; Z82.49 Family history of ischemic heart disease and other diseases of the circulatory system

== ENCOUNTER → 2018-03-20 | Outpatient (CLI) | payer BC ==
[~2018-03-20] MED LIST changes: +ASCO-63; +DICL-201 PO; -LDDP5 TD; +LIDO1PAD2 TOP; -NAPR1TAB9 PO; -OXYC1TAB3 PO; +PRED20TA PO; +PRLSR20 PO
--- NOTE | 2018-03-20 12:00 | DIAGNOSTIC IMAGING REPORT ---
LEG LENGTH STUDY (WHOLE LEG) CLINICAL HISTORY: LEG LENGTH DISCREPANCY COMPARISON STUDY: Right knee 07/22/2014. FINDINGS: There is a right total knee arthroplasty. There is a left medial unicondylar knee prosthesis. The hardware appears intact. There is mild right downward tilt to the patella. The right lower extremity measured from the superior femoral head to the tibial plafond measures 86.3 cm. The left lower extremity measured from the superior femoral head to the tibial plafond measures 88.3 cm. The bilateral tibia are similar in size. However, the right femur measures 47.6 cm in length and the left femur measures 49.5 cm in length. This accounts for the discrepancy. IMPRESSION: The right lower extremity measures 86.3 cm and the left lower extremity measures 88.3 cm. This discrepancy is primarily a result of the different femoral lengths as described above. Electronically signed by: Wilber Davis M.D. 03/20/2018 11:58 AM Dictated Date/Time: 03/20/2018 11:55 AM
== END | disposition home or self-care (01) ==
LOC: C.RADBC 11:10
PROVIDERS: ATTEND Anesthesiology
DX: M21.751 Unequal limb length (acquired), right femur (principal); Z96.659 Presence of unspecified artificial knee joint